=== PATIENT | male | born 1975 | race Caucasian/White ===

== ENCOUNTER 2016-08-30 18:54 | Emergency (ER) | payer BC ==
--- NOTE | 2016-08-30 20:05 | ER Document Report ---
ED Medical Screen (RME) - General Stated Complaint: LEG PAIN, POSSIBLE DVT Notes: 41 yo male c/o discoloration and tenderness to right anterior thigh since yesterday. feels like a bruse, but recalls no trauma. + hx/o aortic dissection, stroke, kidney infarction. no blood thinners x 3 yrs no chest pain or shortness of breath. + numbness to left arm and leg, but has residual numbness from stroke. Physical Exam - Vital signs Vitals: Temp Pulse Resp BP Pulse Ox 97.7 F 64 16 136/76 H 95 08/30/16 19:53 08/30/16 19:53 08/30/16 19:53 08/30/16 19:53 08/30/16 19:53 Course - Vital Signs Vital signs: Temp Pulse Resp BP Pulse Ox 97.7 F 64 16 136/76 H 95 08/30/16 19:53 08/30/16 19:53 08/30/16 19:53 08/30/16 19:53 08/30/16 19:53
--- NOTE | 2016-08-31 01:59 | ER Document Report ---
ED General - General Chief Complaint: Leg Pain Stated Complaint: LEG PAIN, POSSIBLE DVT Notes: Patient is a 41 old male presents with complaints of concern because of a small bruise on the right thigh. He's concerned excessive long extensive history. He 's had aortic valve replacement 2. He's had aortic dissection repair. He's had a stroke he comes of aortic dissection repair. He says because of the strokes he has recurrent numbness and weakness and some of the extremities. He says some days and numbness are worse in others. He said today he had low but increased numbness in his left upper extremity, but says this is not totally typical for him. He's had no chest pain. No shortness of breath. No syncopal be. No dizziness. Patient says the only new thing today a small roots on his anterior right thigh. He's never had this before. He says he wants to make sure that this is not related to his history of dissection or aortic valve replacement. - Related Data Allergies/Adverse Reactions: No Known Allergies Allergy (Verified 08/31/16 02:09) Home Medications: Current Home Medications Albuterol Sulfate [Ventolin Hfa] 2 puff IH Q4H PRN 08/31/16 [History] Aspirin [Aspirin 81 mg Chewable Tablet] 1 tab PO DAILY 08/31/16 [History] Lorazepam [Lorazepam] 0.5 - 1 tab PO Q4H PRN 08/31/16 [History] Metoprolol Succinate 1 tab PO DAILY 08/31/16 [History] Umeclidinium Brm/Vilanterol Tr [Anoro Ellipta 62.5-25 Mcg INH] 1 puff IH DAILY 08/31/16 [History] Past Medical History - Social History Smoking Status: Former Smoker Frequency of alcohol use: None Drug Abuse: None Family History: Reviewed & Not Pertinent Patient has suicidal ideation: No Patient has homicidal ideation: No Renal/ Medical History: Denies: Hx Peritoneal Dialysis Review of Systems - Review of Systems Notes: My Normal Review Basic REVIEW OF SYSTEMS: CONSTITUTIONAL : Denies fever, chills, or sweats. Denies recent illness. EENT: Denies eye, ear, throat, or mouth pain or symptoms. Denies nasal or sinus congestion. CARDIOVASCULAR: Denies chest pain. RESPIRATORY: Denies cough, cold, or chest congestion. Denies shortness of breath, difficulty breathing, or wheezing. GASTROINTESTINAL: Denies abdominal pain. Denies nausea, vomiting, or diarrhea. Denies constipation. Last BM: MUSCULOSKELETAL: Denies neck or back pain or joint pain or swelling. SKIN: Small bruise on right thigh. HEMATOLOGIC : Denies easy bruising or bleeding. LYMPHATIC: Denies swollen, enlarged glands. NEUROLOGICAL: No new focal weakness or numbness. ALL OTHER SYSTEMS REVIEWED AND NEGATIVE. Physical Exam - Vital signs Vitals: Temp Pulse Resp BP Pulse Ox 97.7 F 64 16 136/76 H 95 08/30/16 19:53 08/30/16 19:53 08/30/16 19:53 08/30/16 19:53 08/30/16 19:53 - Notes Notes: General Appearance: Well nourished, alert, cooperative, no acute distress, no obvious discomfort. Very well-appearing. Vitals: reviewed, See vital signs table. Head: no swelling or tenderness to the head Eyes: PERRL, EOMI, Conjuctiva clear Mouth: No decreasd moisture Lungs: No wheezing, No rales, No rhonci, No accessory muscle use, good air exchange bilaterally. Heart: Normal rate, Regular rythm, No murmur, no rub Extremities: strength 5/5 in all extremities, good pulses in all extremities, no swelling or tenderness in the extremities, no edema. Skin: Patient has a very small bruise on the anterior right thigh that is about the size of a dime. Is nontender to palpation. Nose no swelling swelling. He has no further bruises or petechiae remainder of his lower extremities. Neuro: speech clear, oriented x 3, normal affect, responds appropriately to questions. Distal sensation intact. Patient is standing and walking around the room without any difficulty. Course - Vital Signs Vital signs: Temp Pulse Resp BP Pulse Ox 97.6 F 76 18 138/80 H 96 08/31/16 02:05 08/31/16 02:05 08/31/16 02:05 08/31/16 02:05 08/31/16 02:05 - Transfer of Care Notes: 08/31/16 01:59 Patient is well-appearing. I feel the patient is safe to be discharged home. He has a very small bruise on the right anterior thigh. This no other indications of a suggest this is related to stroke or dissection. He does have some intermittent paresthesia in his extremities which she says are not abnormal for him. In the past he's had severe pain, new severe numbness, or loss of consciousness in conjunction with his dissections and aortic valve injury. Patient has known his current symptoms. The only new symptom is the small bruise which is not concerning on exam. His pulses are equal in all 4 extremities. He looks very well. He has no pain. He is not tachycardic nor hypertensive. I feel he is safe to be discharged home. I strongly encouraged him to return to ER immediately if he has pain, single episode, or any symptoms that are customer engagement representative of for he had no past when he had his dissection or aortic valve issues. Patient agrees with plan and will be discharged home. Dictation of this chart was performed using voice recognition software; therefore, there may be some unintended grammatical errors. 08/31/16 08:14 Discharge - Discharge Clinical Impression: Bruise Condition: Good Disposition: HOME, SELF-CARE Additional Instructions: Please follow-up with your doctor in 2-3 days for reevaluation. It is very important to return to the ER immediately if you have any chest pain, any back pain, any new weakness or numbness in the extremities, any fevers, any difficulty breathing, or if the bruise continues to increase in size.
[2016-08-31 02:09] VITALS: BP 138/80
== END 2016-08-31 02:10 | disposition home or self-care (01) ==
LOC: ER 18:54
DX: S70.11XA Contusion of right thigh, initial encounter (principal); M79.651 Pain in right thigh; Z79.899 Other long term (current) drug therapy; X58.XXXA Exposure to other specified factors, initial encounter
CPT/HCPCS: 99283

== ENCOUNTER 2016-10-31 00:42 | Emergency (ER) | payer BC ==
[2016-10-31 00:54] VITALS: BP 102/62
== END 2016-10-31 04:44 | disposition left against medical advice (07) ==
LOC: ER 00:42
DX: Z53.21 Procedure and treatment not carried out due to patient leaving prior to being seen by health care provider (principal)

== ENCOUNTER 2017-04-29 04:33 | Emergency (ER) | payer BC ==
[2017-04-29] MEDS ORDERED: MORPHINE SULFATE 10 MG/ML INJ IV ONE (04:59)
--- NOTE | 2017-04-29 05:04 | ER Document Report ---
Doctor's Note Notes: 04/29/17 05:01 I performed a quick triage evaluation of the patient. Patient is a 41-year-old male who presents with complaint of sharp chest pain. He does have history of aortic dissection. He has had 2 aortic valve replacements. 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 This had been replaced. Is replaced in June with a donor valve. He says been doing well since then. He said he had a little bit of intermittent sharp chest pain throughout the week. He saw his doctor this past week and had an MRI showed no acute concerning abnormality. Tonight he had sudden onset severe sharp intermittent chest pain that has been ongoing. He therefore came to the ER. Denies any weakness or numbness into his extremities. No other complaints at this time. Does have history of alpha-1 antitrypsin deficiency and I think this is why he is having the dissections. His cardiothoracic surgeon is at [facility]. On exam patient does appear to be in pain. Vital signs are normal. He does have typical murmur consistent with that of aortic valve replacement. At this time I have ordered laboratory work and ordered a stat CT of the chest. He has had CTa's in the past without any reaction to contrast. We will take the patient directly to CT to rule out acute dissection. 04/29/17 05:02
[2017-04-29 05:41] LABS: ABSOLUTE BASOPHILS # (AUTO) 0.1 10^3/uL (0.0-0.2); ABSOLUTE EOSINOPHILS # (AUTO) 0.2 10^3/uL (0.0-0.6); ABSOLUTE MONOCYTES (AUTO) 0.9 10^3/uL (0.1-1.4); ABSOLUTE NEUT (AUTO) 7.9 10^3/uL (1.7-8.2); BASOPHILS % (AUTO) 0.8 % (0-2); EOSINOPHILS % (AUTO) 1.7 % (0-6); HEMATOCRIT 43.6 % (37.9-51.0); HEMOGLOBIN 15.2 g/dL (13.5-17.0); LYMPHOCYTES % (AUTO) 10.3 % (13-45); MEAN CORPUSCULAR HEMOGLOBIN 34.7 pg (27.0-33.4); MEAN CORPUSCULAR HGB CONC 34.9 g/dL (32.0-36.0); MEAN CORPUSCULAR VOLUME 99 fl (80-97); MONOCYTES % (AUTO) 9.3 % (3-13); RED BLOOD COUNT 4.39 10^6/uL (4.35-5.55); RED CELL DISTRIBUTION WIDTH 14.6 % (11.5-14.0); SEGMENTED NEUTROPHILS % (AUTO) 77.9 % (42-78); WHITE BLOOD COUNT 10.1 10^3/uL (4.0-10.5)
[2017-04-29] MEDS ORDERED: DEXTROSE 5%-WATER 250 ML with NITROPRUSSIDE SODIUM 50 MG IV PRN ×2 (05:41)
[2017-04-29] MEDS ORDERED: ESMOLOL HCL/SOD CL 2,500 MG/250 ML RTUINJ IV PRN (05:42)
--- NOTE | 2017-04-29 05:45 | ER Document Report ---
ED General - General Chief Complaint: Chest Pain Stated Complaint: CHEST PAIN Time Seen by Provider: 04/29/17 04:58 Notes: Patient is a 41-year-old male who presents with complaint of sharp chest pain. He does have history of aortic dissection. He has had 2 aortic valve replacements. 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 This had been replaced. Is replaced in June with a donor valve. He says been doing well since then. He said he had a little bit of intermittent sharp chest pain throughout the week. He saw his doctor this past week and had an MRI showed no acute concerning abnormality. Tonight he had sudden onset severe sharp intermittent chest pain that has been ongoing. He therefore came to the ER. Denies any weakness or numbness into his extremities. No other complaints at this time. Does have history of alpha-1 antitrypsin deficiency and I think this is why he is having the dissections. His cardiothoracic surgeon is at [facility]. TRAVEL OUTSIDE OF THE [place] IN LAST 30 DAYS: No - Related Data Allergies/Adverse Reactions: No Known Allergies Allergy (Verified 08/31/16 02:09) Past Medical History - Social History Smoking Status: Never Smoker Frequency of alcohol use: None Drug Abuse: None Family History: Reviewed & Not Pertinent Renal/ Medical History: Denies: Hx Peritoneal Dialysis - Immunizations Hx Diphtheria, Pertussis, Tetanus Vaccination: Yes Review of Systems - Review of Systems Notes: My Normal Review Basic REVIEW OF SYSTEMS: CONSTITUTIONAL : Denies fever, chills, or sweats. Denies recent illness. EENT: Denies eye, ear, throat, or mouth pain or symptoms. Denies nasal or sinus congestion. CARDIOVASCULAR: Chest Pain RESPIRATORY: Denies cough, cold, or chest congestion. Denies shortness of breath, difficulty breathing, or wheezing. GASTROINTESTINAL: Denies abdominal pain. Denies nausea, vomiting, or diarrhea. Denies constipation. Last BM: MUSCULOSKELETAL: Denies neck or back pain or joint pain or swelling. SKIN: Denies rash or skin lesions. NEUROLOGICAL: Denies altered mental status or loss of consciousness. Denies headache. Denies weakness or paralysis or loss of use of either side. Denies problems with gait or speech. Denies sensory or motor loss. ALL OTHER SYSTEMS REVIEWED AND NEGATIVE. Physical Exam - Vital signs Vitals: Temp Pulse Resp BP Pulse Ox 98.4 F 96 18 130/66 H 93 04/29/17 04:45 04/29/17 04:45 04/29/17 04:45 04/29/17 04:45 04/29/17 04:45 - Notes Notes: General Appearance: Well nourished, alert, cooperative, no acute distress, moderate obvious discomfort. Vitals: reviewed, See vital signs table. Head: no swelling or tenderness to the head Eyes: PERRL, EOMI, Conjuctiva clear Mouth: No decreasd moisture Neck: Supple, no neck tenderness Lungs: No wheezing, No rales, No rhonci, No accessory muscle use, good air exchange bilaterally. Heart: Normal rate, Regular rythm, No murmur, no rub Chest wall: No reproducible pain palpation of chest wall. Abdomen: Normal BS, soft, No rigidity, No abdominal tenderness, No guarding, no rebound, no abdominal masses, no organomegaly Extremities: strength 5/5 in all extremities, good pulses in all extremities, no swelling or tenderness in the extremities, no edema. Strong and equal bilateral femoral pulses. Skin: warm, dry, appropriate color, no rash Neuro: speech clear, oriented x 3, normal affect, responds appropriately to questions. Course - Re-evaluation Re-evalutation: 04/29/17 05:05 On exam patient does appear to be in pain. Vital signs are normal. He does have typical murmur consistent with that of aortic valve replacement. At this time I have ordered laboratory work and ordered a stat CT of the chest. He has had CTa's in the past without any reaction to contrast. We will take the patient directly to CT to rule out acute dissection. 04/29/17 05:[address] scan does show a descending aortic dissection. This could be chronic. Patient is symptomatic with it however. I did talk to the patient and he thinks he does have a chronic descending dissection but he is unsure. I have no previous CT scans compared to. I will send him back CT scan to skin through the rest of his abdomen pelvis. I will then call his surgeon at [facility]. I will place him on nitroprusside and Esmolol drips to control his heart rate and blood pressure. 04/29/17 06:42 Patient's cardiothoracic surgeon is Dr. Hooks. Patient's cardiac enzymes are negative. His pain is improved. We have not had to start the nitroprusside or a small just yet being that his vital signs did improve after we got his pain under control. I have called [facility] and spoke with Claudy at [facility]. He says Dr. Wilson, cardiothoracic surgeon on-call, is currently in the middle of an operation and may be a well. He says he will try to get information to him but there may be a delay in him getting back to us. He says to call them back immediately if the patient has any decompensation. We are currently awaiting to hear back from Dr. Wilson. 04/29/17 07:31 I did speak with Dr. Barney who is covering for cardiothoracic surgery at [facility]. He agrees to accept the patient for transfer. Continues with continued blood pressure management until patient is transferred. I did explain to the patient is agreeable to. Patient started having a small amount of recurrent pain and therefore I will give him a small dose of Dilaudid. His vital signs are stable. Otherwise looks very well clinically on exam. Peripheral pulses are normal. He has normal equal bilateral femoral pulses. She did not will be closely monitored until transferred. Dictation of this chart was performed using voice recognition software; therefore, there may be some unintended grammatical errors. - Vital Signs Vital signs: Temp Pulse Resp BP Pulse Ox 98.4 F 96 19 109/70 97 04/29/17 04:45 04/29/17 04:45 04/29/17 07:05 04/29/17 07:05 04/29/17 07:05 - Laboratory Result Diagrams: 04/29/17 05:25 04/29/17 05:25 Laboratory results interpreted by me: 04/29/17 05:25 MCV 99 H MCH 34.7 H RDW 14.6 H Lymphocytes % 10.3 L - EKG Interpretation by Me Additional EKG results interpreted by me: 04/29/17 06:13 EKG is reviewed and interpreted by me. EKG shows sinus rhythm with a rate of [address] segment elevation or depression. No ischemic T-wave inversions. LA interval, QRS duration are within normal range. QTc interval is borderline. No old EKG available for comparison. Discharge - Discharge Clinical Impression: Aortic dissection Qualifiers: Aortic location: thoracoabdominal aorta Qualified Code(s): I71.03 - Dissection of thoracoabdominal aorta Condition: Stable Disposition: [facility]
--- NOTE | 2017-04-29 05:51 | RADIOLOGY REPORT (SQ) ---
EXAM DESCRIPTION: CTA CHEST COMPLETED DATE/TIME: 04/29/2017 5:17 am REASON FOR STUDY: chest pain with history of aortic dissection . Sharp stabbing pain left side to t he back. Chest pain with shortness of breath. COMPARISON: None. TECHNIQUE: CT scan of the chest performed using helical scanning technique with dynamic intravenous contrast injection. Images reviewed with lung, soft tissue and bone windows. Reconstructed coronal and sagittal MPR images reviewed. Additional 3 dimensional post-processing performed to develop Maximal Intensity Projection images (IA P). All images stored on PACS. All CT scanners at this facility use dose modulation, iterative reconstruction, and/or weight based d osing when appropriate to reduce radiation dose to as low as reasonably achievable (ALARA). [facility]: Dose Right [facility]: CareDose [facility]: Dose Right [facility]: Teradose 4D [facility]: Deemelo CONTRAST TYPE AND DOSE: contrast/concentration: Isovue 370.00 mg/ml; Total Contrast Delivered: 75.0 ml; Total Saline Delivered: 75.0 ml RENAL FUNCTION: None required. The patient is less than 50 years old. RADIATION DOSE: Up-to-date CT equipment and radiation dose reduction techniques were employed. CTDIv ol: 13.3 - 17.0 mGy. DLP: 643 mGy-cm. . LIMITATIONS: None. FINDINGS: LUNGS AND PLEURA: There are bilateral emphysematous changes. Small nodules in the right m iddle lobe along the minor fissure measuring up to 8 mm. Mild atelectasis at the lingula and bilater al lower lobes. AORTA AND GREAT VESSELS: Postsurgical changes at the ascending thoracic aorta. There is fusiform an eurysmal dilation of the ascending thoracic aorta to 4.5 x 4.0 cm. Fusiform aneurysmal dilation of t he descending thoracic aorta measuring 4.3 x 3.6 cm. There is intramural thrombus with dissection at the descending thoracic aorta extending into the abdominal aorta. HEART: No pericardial effusion. No significant coronary artery calcifications. PULMONARY ARTERIES: No emboli visualized in the main pulmonary arteries or the segmental branches. HILAR AND MEDIASTINAL STRUCTURES: No identified masses or abnormal nodes. HARDWARE: None in the chest. UPPER ABDOMEN: Intramural thrombus within the visualized abdominal aorta. Infrarenal abdominal aorti c aneurysm dilation measuring 3.8 x 3.5 cm . There is cortical scarring and atrophy at the right kid dixon. Mild soft tissue stranding at the gallbladder. THYROID AND OTHER SOFT TISSUES: No masses. No adenopathy. BONES: No acute findings. 3D MIPS: Confirm above findings. IMPRESSION: 4.5 x 4.0 cm ascending thoracic aortic aneurysm. 4.3 x 3.6 cm descending thoracic aorti c aneurysm with Anthony type B aortic dissection extending into the visualized abdominal aorta. 3.8 x 3.5 cm infrarenal abdominal aortic aneurysm with intramural thrombus. No pulmonary emboli. Emphysema. Right middle lobe pulmonary nodules measuring up to [address] chest in 3 months recommended to re-evaluate. Cortical scarring and atrophy at the right kidney. Mild soft tissue stranding at the gallbladder. Please correlate for acute cholecystitis. COMMENT: Pertinent findings of the imaging study reported as a CRITICAL EXAM to AMANDA WILLS DO at 05:31 hrs on 04/29/2017. Category of Critical Exam: Thoracic and abdominal aortic aneurysms. [place] type B aortic dissectio n at the descending thoracic aorta extending into the visualized abdominal aorta. Quality ID # [id number]: Final reports with documentation of one or more dose reduction techniques (e.g., Au tomated exposure control, adjustment of the mA and/or kV according to patient size, use of iterative reconstruction technique) TECHNICAL DOCUMENTATION: JOB ID: [id number] 2010 [employer]- All Rights Reserved
[2017-04-29 05:53] LABS: ALANINE AMINOTRANSFERASE 53 U/L (21-72); ALBUMIN 4.5 g/dL (3.5-5.0); ALKALINE PHOSPHATASE 60 U/L (38-126); ANION GAP 12 (5-19); ASPARTATE AMINO TRANSFERASE 31 U/L (17-59); BILIRUBIN,DIRECT 0.4 mg/dL (0.0-0.4); BILIRUBIN,TOTAL 1.1 mg/dL (0.2-1.3); BLOOD UREA NITROGEN 13 mg/dL (7-20); CALCIUM 9.3 mg/dL (8.4-10.2); CARBON DIOXIDE 22 mmol/L (22-30); CHLORIDE 106 mmol/L (98-107); CREATINE KINASE 116 U/L (55-170); CREATININE RESULT 1.12 mg/dL (0.52-1.25); GLUCOSE 86 mg/dL (75-110); POTASSIUM 4.6 mmol/L (3.6-5.0); TOTAL PROTEIN 6.9 g/dL (6.3-8.2)
[2017-04-29] MEDS ORDERED: HYDROMORPHONE HCL INJ/PF 2 MG/ML AMPULE IV ONE ×2 (05:54→07:31)
[2017-04-29] MEDS ORDERED: NITROPRUSSIDE SODIUM 2 ML IV ONE (05:55)
[2017-04-29 06:14] LABS: CREATINE KINASE MB 0.55 ng/mL (<4.55)
[2017-04-29] MEDS ORDERED: NORMAL SALINE 1000 ML 1,000 ML IV ONE (06:17)
[2017-04-29 06:20] LABS: TROPONIN I < 0.012 ng/mL
--- NOTE | 2017-04-29 06:26 | RADIOLOGY REPORT (SQ) ---
EXAM DESCRIPTION: CT ABD/PELVIS WITH IV ONLY COMPLETED DATE/TIME: 04/29/2017 6:04 am REASON FOR STUDY: dissection COMPARISON: CT angiogram chest 04/29/2017. TECHNIQUE: CT scan of the abdomen and pelvis performed using helical scanning technique with dynamic intravenous contrast injection. No oral contrast. Images reviewed with lung, soft tissue, and bone windows. Reconstructed coronal and sagittal MPR images reviewed. Delayed images for evaluation of the urinary system also acquired. All images stored on PACS. All CT scanners at this facility use dose modulation, iterative reconstruction, and/or weight based d osing when appropriate to reduce radiation dose to as low as reasonably achievable (ALARA). [facility]: Dose Right [facility]: CareDose [facility]: Dose Right [facility]: Teradose 4D [facility]: BLUE[place] CONTRAST TYPE AND DOSE: contrast/concentration: Isovue 370.00 mg/ml; Total Contrast Delivered: 98.0 ml; Total Saline Delivered: 72.0 ml RENAL FUNCTION: None required. The patient is less than 50 years old. RADIATION DOSE: Up-to-date CT equipment and radiation dose reduction techniques were employed. CTDIv ol: 9.8 - 14.5 mGy. DLP: 1266 mGy-cm.. LIMITATIONS: None. FINDINGS: LOWER CHEST: See separate report of the CT of the chest. LIVER: Normal size. No masses. No dilated ducts. SPLEEN: Normal size. PANCREAS: No significant calcifications. No adjacent inflammation or peripancreatic fluid collections . Pancreatic duct not dilated. GALLBLADDER: Present peer ADRENAL GLANDS: No significant masses or asymmetry. RIGHT KIDNEY AND URETER: Cortical scarring and atrophy at the right kidney. Subcentimeter hypodensit ies at the renal parenchyma, too small to be adequately characterized. No significant calcifications . No hydronephrosis or hydroureter. LEFT KIDNEY AND URETER: No significant calcifications. No hydronephrosis or hydroureter. AORTA AND VESSELS: Descending thoracic aortic aneurysm extending into the abdominal aorta. The supra renal abdominal aorta measures 3.6 x 3.4 cm. The infrarenal abdominal aorta measures 3.5 x 3.8 cm. Intramural thrombus at the infrarenal abdominal aorta extending along the left common iliac artery. Aneurysmal dilation of the proximal left common iliac artery measuring 2.4 cm. Atherosclerotic calci fications at the infrarenal abdominal aorta and proximal left common iliac artery. The celiac artery , the SMA and the bilateral renal arteries are patent. RETROPERITONEUM: No retroperitoneal hemorrhage or masses. BOWEL AND PERITONEAL CAVITY: No dilated bowel loops or inflammatory changes. No free fluid or free ai r. APPENDIX: Normal. PELVIS: Excreted intravenous contrast is seen within the urinary bladder. No pelvic mass. No free f luid. ABDOMINAL WALL: Small fat containing umbilical hernia. BONES: No acute findings. IMPRESSION: Suprarenal and infrarenal abdominal aortic aneurysm with dissection extending throughout the abdominal aorta. Intramural thrombus at the infrarenal abdominal aortic aneurysm extending des g the proximal left common iliac artery. 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 Cortical scarring and atrophy at the right kidney. Please correlate with clinical history. COMMENT: Pertinent findings on the imaging study reported as a CRITICAL RESULT to AMANDA WILLS DO at06:17 hrs on 04/29/2017. Category of Critical Result: Abdominal aortic aneurysm with dissection. TECHNICAL DOCUMENTATION: JOB ID: [id number] Quality ID # [id number]: Final reports with documentation of one or more dose reduction techniques (e.g., Au tomated exposure control, adjustment of the mA and/or kV according to patient size, use of iterative reconstruction technique) 2010 [employer]- All Rights Reserved
[2017-04-29] MEDS ORDERED: HYDROMORPHONE HCL INJ/PF 2 MG/ML AMPULE IV SCH (09:00)
--- NOTE | 2017-04-29 09:17 | ER Document Report ---
Doctor's Note Notes: 04/29/17 09:17 Patient reevaluated blood pressure is stable Transfer is here to take patient
--- NOTE | 2017-04-29 09:18 | EKG REPORT ---
SEVERITY:- ABNORMAL ECG - SINUS RHYTHM LEFT ATRIAL ABNORMALITY NONSPECIFIC T ABNORMALITIES, ANT-LAT LEADS BORDERLINE PROLONGED QT INTERVAL : Confirmed by: Rach Schaffer MD 29-Apr-2017 09:17:51
[2017-04-29 09:38] VITALS: BP 102/68
== END 2017-04-29 10:13 | disposition short-term general hospital (02) ==
LOC: ER 04:33
DX: I71.03 Dissection of thoracoabdominal aorta (principal); E88.01 Alpha-1-antitrypsin deficiency; Z95.4 Presence of other heart-valve replacement
CPT/HCPCS: 93005; 99291; 96374; 96375; 36415; 82553; 82550; 85025; 80053; 84484; 71275; 74177; 93010; J2270; J1170; J7030